=== PATIENT | male | born 1955 | race African-American/Black ===

== ENCOUNTER 2021-01-28 17:28 | Emergency (ER) | payer BC, MEDICARE ==
[2021-01-28] MEDS ORDERED: Ketorolac Tromethamine 30 MG/ML VIAL ONE ×2 (19:10→19:46)
[2021-01-28 19:29] LABS: #Lymphocytes 0.9 thou/uL (1.20-3.40); #Monocytes 0.5 thou/uL (0.11-0.59); %Basophils 0.2 % (0.0-1.0); %Eosinophils 0.2 % (0.0-10.0); %Lymphocytes 20.3 % (21.0-51.0); %Monocytes 10.4 % (0.0-10.0); %Neutrophils 68.9 % (42.0-75.0); Hemoglobin 14.9 g/dL (14.0-18.0); Mean Corpuscular Hemoglobin 27.1 pg (27.0-31.0); Mean Corpuscular Volume 79.7 fL (78.0-98.0); Mean Platelet Volume 9.1 fL (7.4-10.4); Platelet Count 216 thou/uL (130-400); RBC Distribution Width 12.6 % (11.5-14.5); Red Blood Cell (RBC) Count 5.49 mill/uL (4.70-6.10); White Blood Cell (WBC) Count 4.4 thou/uL (4.8-10.8)
[2021-01-28 19:43] LABS: ALT (SGPT) 26 U/L (8-55); AST (SGOT) 39 U/L (5-34); Albumin 3.3 g/dL (3.4-4.8); Alkaline Phosphatase 117 U/L (40-110); Anion Gap 13 mmol/L (10-20); BUN (Urea Nitrogen) 10 mg/dL (8.4-25.7); Bilirubin, Total 0.6 mg/dL (0.2-1.2); Calc. Creatinine Clearance 0 mL/min (70-130); Calcium 8.6 mg/dL (7.8-10.44); Carbon Dioxide 21 mmol/L (23-31); Chloride 103 mmol/L (98-107); Globulin 3.4 g/dL (2.4-3.5); Glucose 218 mg/dL (80-115); Potassium 4.4 mmol/L (3.5-5.1); Protein, Total 6.7 g/dL (5.8-8.1); Sodium 133 mmol/L (136-145)
[2021-01-28 20:20] LABS: Bacteria/HPF None Seen HPF (None Seen); Bilirubin Negative (Negative); Blood, Urine 1+ (Negative); Clarity Clear (Clear); Glucose, Urine (Dipstick) >=1000 mg/dL (Negative); Ketone, Urine Negative (Negative); Leukocyte Negative Leu/uL (Negative); Nitrite Negative (Negative); Protein, Urine (Dipstick) 100 mg/dL (Neg-Trace); RBC/HPF 0-3 HPF (0-3); Specific Gravity, Urine 1.026 (1.002-1.036); Squamous Epithelial 0-3 HPF (0-3); Urobilinogen Normal mg/dL (Less than 2); WBC/HPF 0-3 HPF (0-3); pH, Urine 5.5 (5.0-9.0)
[2021-01-28 20:21] LABS: Hemoglobin A1c 8.7 % (4.0-6.0)
[2021-01-28] MEDS ORDERED: traMADol HCl 50 MG TAB ONE (20:59)
[2021-01-28 22:20] LABS: SARS-CoV-2 NAA Rapid Test DETECTED (NotDetected)
== END 2021-01-28 23:10 | disposition home or self-care (01) ==
LOC: ERS 17:28
DX: U07.1 COVID-19 (principal); M54.5 Low back pain; I48.91 Unspecified atrial fibrillation; E10.65 Type 1 diabetes mellitus with hyperglycemia; I10 Essential (primary) hypertension; Z79.01 Long term (current) use of anticoagulants
CPT/HCPCS: 0240U; 80053; 82010; 83036; 85025; 36415; 81003; 81015; 96374; J1885